=== PATIENT | male | born 1965 | race Caucasian/White ===

== ENCOUNTER 2018-06-02 02:40 | Emergency (ER) | payer MEDICARE ==
[~2018-06-02] VITALS: Ht 175.3 cm; Wt 104.5 kg
[2018-06-02] MEDS ORDERED: AMLO-512 PO (03:05)
[2018-06-02] MEDS ORDERED: CYCL10 PO (03:05)
[2018-06-02] MEDS ORDERED: LISI-662 PO (03:05)
[2018-06-02] MEDS ORDERED: CYCLOBENZAPRINE HCL 10 MG TABLET PO ONE (03:45)
[2018-06-02] MEDS ORDERED: HYDROCODONE/ACETAMINOPHEN 5-325 MG TABLET PO ONE (03:45)
[2018-06-02 04:28] VITALS: BP 142/88
== END 2018-06-02 05:22 | disposition home or self-care (01) ==
LOC: EMS 02:44
DX: M54.5 Low back pain (principal); G89.29 Other chronic pain; M54.2 Cervicalgia; I10 Essential (primary) hypertension; Z79.899 Other long term (current) drug therapy

== ENCOUNTER 2018-07-15 00:02 | Emergency (ER) | payer MEDICARE ==
[~2018-07-15] VITALS: Ht 177.8 cm; Wt 104.5 kg
[~2018-07-15 00:02] MED LIST: AMLO-512 PO; CYCL10 PO; LISI-662 PO
[2018-07-15] MEDS ORDERED: HYDR-4455 PO (00:32)
[2018-07-15] MEDS ORDERED: ONDANSETRON HCL 4 MG/2 ML VIAL IM ONE (01:45)
[2018-07-15] MEDS ORDERED: KETOROLAC TROMETHAMINE 30 MG/ML VIAL IM ONE (01:45)
[2018-07-15] MEDS ORDERED: MORPHINE SULFATE 4 MG/ML SYRINGE IM ONE (01:45)
[2018-07-15 05:00] VITALS: BP 139/84
== END 2018-07-15 05:56 | disposition home or self-care (01) ==
LOC: EMS 00:02
DX: M51.36 Other intervertebral disc degeneration, lumbar region (principal); M54.41 Lumbago with sciatica, right side; M54.42 Lumbago with sciatica, left side; G89.29 Other chronic pain; I10 Essential (primary) hypertension; Z79.899 Other long term (current) drug therapy
CPT/HCPCS: 81002; 96372; 99283; J1885; J2270; J2405

== ENCOUNTER 2018-07-16 05:51 | Emergency (ER) | payer MEDICARE ==
[~2018-07-16] VITALS: Ht 175.3 cm; Wt 98.5 kg
[~2018-07-16 05:51] MED LIST changes: +HYDR-4455 PO
[2018-07-16] MEDS ORDERED: KETOROLAC TROMETHAMINE 30 MG/ML VIAL IM ONE (07:00)
[2018-07-16] MEDS ORDERED: MORPHINE SULFATE 4 MG/ML SYRINGE IM ONE (07:00)
[2018-07-16 09:57] VITALS: BP 108/63
== END 2018-07-16 10:00 | disposition home or self-care (01) ==
LOC: EMS 05:51
DX: M51.36 Other intervertebral disc degeneration, lumbar region (principal); G89.29 Other chronic pain; I10 Essential (primary) hypertension; Z79.899 Other long term (current) drug therapy
CPT/HCPCS: 96372; 99283; J1885; J2270